=== PATIENT | male | born 1975 | race Two or more races ===

== ENCOUNTER 2020-10-09 15:43 | Emergency (ER) | payer OTHER ==
[~2020-10-09] VITALS: Ht 170.2 cm; Wt 83.9 kg
[2020-10-09 15:56] VITALS: BP 126/83
== END 2020-10-09 21:29 | disposition left against medical advice (07) ==
LOC: ER 15:43
DX: M79.675 Pain in left toe(s) (principal); Z53.21 Procedure and treatment not carried out due to patient leaving prior to being seen by health care provider
CPT/HCPCS: 73660